=== PATIENT | male | born 1990 | race Two or more races ===

== ENCOUNTER 2017-09-28 00:18 | Emergency (ER) | payer BC ==
[2017-09-28 00:23] VITALS: BP 141/83; PULSE 60; TEMP 98.4; BMI 27.8
[2017-09-28] MEDS ORDERED: ACETAMINOPHEN 1000 MG/100 ML VIAL (NON FORMULARY) IVPB ONE (01:01)
[2017-09-28] MEDS ORDERED: ACETAMINOPHEN INJECTION 100 ML IVPB ONE (01:11)
--- NOTE | 2017-09-28 01:16 | PDOC ---
Attending Attestation - HPI HPI: 09/28/17 01:22 The patient is a 27 year old male, with a significant PMH of crohn's disease, who presents to the emergency department with three days of left lower quadrant pain. The patient states his left lower quadrant pain feels similar to his previous crohns flare ups. The patient states he has had 1-2 hospitalizations per year in the past for his crohns flare ups. The patient also reports one episode of non bloody non bilious emesis earlier today. The patient denies chest pain, shortness of breath, headache and dizziness. Denies fever, chills, diarrhea and constipation. Denies dysuria, frequency, urgency and hematuria. Allergies: NKA - Physicial Exam PE: 09/28/17 01:22 GENERAL: (+) Moderate distress. Well developed, well nourished. Awake and alert. HEENT: Normocephalic, atraumatic. PERRLA, EOMI. No conjunctival pallor. Sclera are non- icteric. Moist mucous membranes. Oropharynx is clear. NECK: Supple. Full ROM. No JVD. Carotid pulses 2+ and symmetric, without bruits. No thyromegaly. No lymphadenopathy. CARDIOVASCULAR: Regular rate and rhythm. No murmurs, rubs, or gallops. Distal pulses are 2+ and symmetric. PULMONARY: No evidence of respiratory distress. Lungs clear to auscultation bilaterally. No wheezing, rales or rhonchi. ABDOMINAL: (+) Left lower quadrant tenderness. Soft. Non-distended. No rebound or guarding. No organomegaly. Normoactive bowel sounds. MUSCULOSKELETAL Normal range of motion at all joints. No bony deformities or tenderness. No CVA tenderness. EXTREMITIES: No cyanosis. No clubbing. No edema. No calf tenderness. SKIN: Warm and dry. Normal capillary refill. No rashes. No jaundice. NEUROLOGICAL: Alert, awake, appropriate. Cranial nerves 2-12 intact. No deficits to light touch and temperature in face, upper extremities and lower extremities. No motor deficits in the in face, upper extremities and lower extremities. Normoreflexic in the upper and lower extremities. Normal speech. Toes are down- going bilaterally. Gait is normal without ataxia. PSYCHIATRIC: Cooperative. Good eye contact. Appropriate mood and affect. <Deonte Jacobs - Last Filed: 09/28/17 01:22> - Resident Resident Name: Mariela Casiano - ED Attending Attestation I have performed the following: I have examined & evaluated the patient, The case was reviewed & discussed with the resident, I agree w/resident's findings & plan, Exceptions are as noted - Medical Decision Making 09/28/17 05:37 Pt treated and released . Given Abx and for pt to follow up with his GI doc. <Douglas Weinberg - Last Filed: 09/28/17 05:38> Attestations - Attestations 09/28/17 01:23 Documentation prepared by Deonte Jacobs, acting as chief medical director for Douglas Weinberg DO. <Deonte Jacobs - Last Filed: 09/28/17 01:22>
[2017-09-28] MEDS ORDERED: SODIUM CHLORIDE 1,000 ML IV STA (01:17)
[2017-09-28] MEDS ORDERED: morphine CARPU-JECT 4 MG/1 ML DISP.SYRIN IVPUSH ONE ×2 (01:17→04:40)
[2017-09-28] MEDS ORDERED: morphine SULFATE 4 MG/ML VIAL ONE ×2 (01:20→04:46)
[2017-09-28 01:24] LABS: BASO % 0.8 % (0-2.0); EOS % 1.4 % (0-4.5); HEMATOCRIT 43.4 % (35.4-49); HEMOGLOBIN 14.6 GM/dL (11.7-16.9); LYMPH % 32.5 % (8-40); MCH 30.8 pg (25.7-33.7); MCHC 33.7 g/dl (32.0-35.9); MEAN CELL VOLUME 91.4 fl (80-96); MEAN PLT VOLUME 9.3 fl (7.5-11.1); MONO % 8.7 % (3.8-10.2); NEUT % 56.6 % (42.8-82.8); PLATELET COUNT 218 K/MM3 (134-434); RBC 4.75 M/mm3 (4.00-5.60); WHITE BLOOD COUNT 9.4 K/mm3 (4.0-10.0)
--- NOTE | 2017-09-28 01:36 | PDOC ---
History of Present Illness - General Chief Complaint: Pain, Acute Stated Complaint: ABDOMINAL PAIN Time Seen by Provider: 09/28/17 00:59 History Source: Patient Exam Limitations: No Limitations - History of Present Illness Initial Comments: HPI: Patient is a 27 year old male with PMH of Crohn's disease presenting to ED with LLQ abdominal pain x 3 days but worsened today. Patient said that this pain feels like his usual flare ups which he usually ends up getting hospitalized for. He usually takes Humira for Crohn's every two weeks but his last dose was "months ago". Patient said he had a non bloody non painful bowel movement this morning. Patient also states that he has been trying to eat and drink fluids and it did not produce pain. He denies fever, chills, chest pain, SOB, dysuria, diarrhea, constipation. He has been taking Tylenol and stool softeners. GE: Dr. Pena PCP: Dr. Garcia PMH: Crohn's Disease PSH: None Meds: Humira Allergies: None Known Social: Marijuana 2-3 joints/day, social alcohol use. denies tobacco use. Past History - Past Medical History Allergies/Adverse Reactions: Allergies Allergy/AdvReac Type Severity Reaction Status Date / Time No Known Allergies Allergy Verified 09/28/17 00:24 Home Medications: Ambulatory Orders Ibuprofen 800 mg PO TID #30 tablet 09/28/17 Oxycodone HCl/Acetaminophen [Percocet 5-325 mg Tablet] 1 - 2 tab PO Q6H #20 tablet MDD 4 09/28/17 levoFLOXacin [Levaquin -] 500 mg PO DAILY #7 tablet 09/28/17 metroNIDAZOLE [Flagyl -] 500 mg PO BID #14 tablet 09/28/17 - Suicide/Smoking/Psychosocial Hx Smoking History: Never smoked Have you smoked in the past 12 months: No Information on smoking cessation initiated: No Hx Alcohol Use: No Drug/Substance Use Hx: No Review of Systems - Review of Systems Comments:: 09/28/17 01:36 ROS: Constitutional: No fevers, chills, fatigue, malaise HEENT: No Rhinorrhea, nasal congestion Cardiovascular: No chest pain, syncope Respiratory: No Cough, SOB, Hemoptysis, Gastrointestinal: LLQ Abdominal pain, Nausea, Vomiting. NO Constipation, Diarrhea, Melena Genitourinary: No Dysuria, Frequency, Urgency, Hesitancy, Hematuria, Flank pain Musculoskeletal: No Myalgia, arthralgia Skin: No rashes, itching, bruising, pallor Neurologic: No Headache, Dizziness, Numbness, Weakness, or Tingling *Physical Exam - Vital Signs Last Vital Signs Temp Pulse Resp BP Pulse Ox 98.4 F 60 18 141/83 96 09/28/17 00:21 09/28/17 00:21 09/28/17 00:21 09/28/17 00:21 09/28/17 00:21 - Physical Exam Comments: 09/28/17 01:37 Physical Exam: General Appearance: Patient in bed in hallway, holding on to LLQ. Distressed. HEENT: EOMI, CHIARA. Neck: No Cervical Lymphadenopathy Respiratory/Chest: Lungs Clear, Normal Breath Sounds. No Crackles, Rales, Rhonchi, Wheezing Cardiovascular: Regular Rhythm, Regular Rate. No JVD, Murmur, Gallops, Rubs Gastrointestinal/Abdominal: LLQ tenderness. Normal Bowel Sounds, Soft. No Guarding, Rebound Musculoskeletal: No CVA Tenderness Integumentary: Normal Color, Dry, Warm Neurologic: election assistant II-XII NML intact, Fully Oriented, Alert, Normal Mood/Affect, Normal Response. ED Treatment Course - LABORATORY CBC & Chemistry Diagram: 09/28/17 01:10 09/28/17 01:10 - RADIOLOGY Radiology Studies Ordered: Category Date Time Status ABDOMEN & PELVIS CT W/O CONTR [CT] Stat CT Scan 09/28/17 01:17 Ordered 09/28/17 07:16 Lung bases clear. stomach and abdominal large and small bowel normal. Pelvic small and large bowel notable for mild focal inflammation of mid-with sigmoid colon and inflamed diverticula, consistent with diverticulitis. Not the typical appearance of Crohn's disease. No bowel obstruction, abscess or free air. Appendix is normal. Impression: uncomplicated sigmoid diverticulitis. - Medications Given in the ED: ED Medications Discontinued Medications Generic Name Dose Route Start Last Admin Trade Name Freq PRN Reason Stop Dose Admin Acetaminophen 1,000 mg 09/28/17 01:01 09/28/17 01:15 Ofirmev Injection - IVPB 09/28/17 01:02 1,000 mg ONCE ONE Administration Morphine Sulfate 4 mg 09/28/17 01:17 09/28/17 01:19 Morphine Injection - IVPUSH 09/28/17 01:18 4 mg ONCE ONE Administration Medical Decision Making - Medical Decision Making 09/28/17 01:43 Patient is a 27 year old male with PMH of Crohn's disease presenting to ED with LLQ abdominal pain x 3 days which worsened today. DDX: Crohn's flare up, Diverticulitis, infectious colitis, appendicitis, testicular torsion, epididymitis/orchitis, nephrolithiasis. CT scan showed: pelvic small and large bowel notable for mild focal inflammation of the mid- with sigmoid colon an inflamed diverticula consisent with diverticultis. Afebrile, vitals wnl, WBC wnl. Called Dr. Pena and he was on board with plan to give pt dose of abx here and d/c with po abx. Pt was given Flagyl and Levaquin and d/c with flagyl, levaquin and ibuprofen for pain. Pt will follow up with Dr. Pena. PT was afebrile, vitals wnl. WBC wnl and pain controlled and tolerating PO. Pt deemed stable for dc. Pt agreed to plan and verbalized understanding of return precautions. *DC/Admit/Observation/Transfer Diagnosis at time of Disposition: Diverticulitis - Discharge Dispostion Disposition: HOME Condition at time of disposition: Stable - Prescriptions Prescriptions: Ibuprofen 800 mg PO TID #30 tablet levoFLOXacin [Levaquin -] 500 mg PO DAILY #7 tablet metroNIDAZOLE [Flagyl -] 500 mg PO BID #14 tablet Oxycodone HCl/Acetaminophen [Percocet 5-325 mg Tablet] 1 - 2 tab PO Q6H #20 tablet MDD 4 - Referrals - Patient Instructions Printed Discharge Instructions: Diverticulitis Additional Instructions: You were seen here today because you were having severe left sided abdominal pain which was similar to Crohn's flare up. We did some blood work and a CT scan of your abdomen to figure out the cause. The CT showed diverticulitis which is an infection of diverticuli (out pouchings ) of the colon. I called Dr. Pena and he agreed with our plan to give you antibiotics and send you home with pain management as well. Please make an appointment with Dr. Pena as soon as you can. Please come back to the ED if you start to experience: worsening abdominal pain , vomiting, blood in the stool, if you are not having any bowel movements, if you develop fever or if a new concerning symptom develops. Thank you. - Post Discharge Activity Forms/Work/School Notes: Back to Work
[2017-09-28 02:01] LABS: ALBUMIN 4.1 g/dl (3.4-5.0); ALK PHOS 57 U/L (45-117); ANION GAP 9 (8-16); BILIRUBIN,TOTAL 0.6 mg/dL (0.2-1.0); BLOOD UREA NITROGEN 13 mg/dL (7-18); CALCIUM 9.3 mg/dL (8.5-10.1); CHLORIDE 104 mmol/L (98-107); CO2 25 mmol/L (21-32); CREATININE 1.3 mg/dL (0.7-1.3); GLUCOSE,RANDOM 94 mg/dL (74-106); POTASSIUM 3.9 mmol/L (3.5-5.1); SGOT/AST 25 U/L (15-37); SGPT/ALT 28 U/L (12-78); SODIUM 138 mmol/L (136-145); TOT PROT 7.5 g/dl (6.4-8.2)
[2017-09-28] MEDS ORDERED: KETOROLAC TROMETHAMINE 30 MG/1 ML VIAL IVPUSH ONE (05:21)
[2017-09-28] MEDS ORDERED: KETOROLAC TROMETHAMINE 30 MG/1 ML VIAL ONE (05:26)
== END 2017-09-28 07:42 | disposition home or self-care (01) ==
LOC: JER 00:18
PROC: 3E03329 Introduction of Other Anti-infective into Peripheral Vein, Percutaneous Approach (ICD-10-PCS; principal; 2017-09-28)
PROC: 3E033NZ Introduction of Analgesics, Hypnotics, Sedatives into Peripheral Vein, Percutaneous Approach (ICD-10-PCS; 2017-09-28)
PROC: 3E033NZ Introduction of Analgesics, Hypnotics, Sedatives into Peripheral Vein, Percutaneous Approach (ICD-10-PCS; 2017-09-28)
PROC: 3E0333Z Introduction of Anti-inflammatory into Peripheral Vein, Percutaneous Approach (ICD-10-PCS; 2017-09-28)
PROC: 3E033NZ Introduction of Analgesics, Hypnotics, Sedatives into Peripheral Vein, Percutaneous Approach (ICD-10-PCS; 2017-09-28)
DX: K57.32 Diverticulitis of large intestine without perforation or abscess without bleeding (principal); K50.90 Crohn's disease, unspecified, without complications
CPT/HCPCS: 36415; 74176-TC; 80053; 83605; 83690; 85025; 99282-25; J0131; J7030

== ENCOUNTER 2021-07-08 04:39 | Day surgery (SDC) | payer BC, OTHER ==
[2021-07-05 18:35] VITALS: BMI 27.9
[2021-07-08] MEDS ORDERED: MIDAZOLAM HCL 2 MG/2 ML SINGLE DOSE VIAL ONE ×2 (11:28)
[2021-07-08] MEDS ORDERED: DEXAMETHASONE SOD PHOSPHATE 10 MG/1 ML VIAL ONE ×2 (11:47→11:49)
[2021-07-08] MEDS ORDERED: BUPIVACAINE HCL/PF 0.25% (2.5MG/ML) 10 ML VIAL ONE (11:47)
[2021-07-08] MEDS ORDERED: BUPIVACAINE HCL/PF 0.5% (5MG/ML) 10 ML VIAL ONE ×2 (11:50)
[2021-07-08] MEDS ORDERED: ceFAZolin SODIUM 1 GM VIAL ONE (12:31)
[2021-07-08] MEDS ORDERED: ceFAZolin SODIUM 1 GM VIAL IVPB ONE (12:31)
[2021-07-08] MEDS ORDERED: DEXAMETHASONE SOD PHOSPHATE 4 MG/1 ML VIAL ONE (12:34)
[2021-07-08] MEDS ORDERED: PROPOFOL 20 ML ONE ×2 (13:21→13:53)
[2021-07-08] MEDS ORDERED: oxyCODONE HCL 5 MG TABLET PO PRN (15:38)
[2021-07-08] MEDS ORDERED: ONDANSETRON 4 MG/2 ML VIAL IVPUSH PRN (15:38)
[2021-07-08] MEDS ORDERED: LACTATED RINGERS SOLUTION 1,000 ML IV SCH (15:45)
[2021-07-08 17:45] VITALS: BP 122/73; PULSE 82; TEMP 97.7
== END 2021-07-08 18:23 | disposition home or self-care (01) ==
LOC: JASU-SURG 04:39
PROVIDERS: ATTEND Podiatrist Foot & Ankle Surgery
PROC: 0LQN0ZZ Repair Right Lower Leg Tendon, Open Approach (ICD-10-PCS; principal; 2021-07-08 11:30)
DX: S86.011A Strain of right Achilles tendon, initial encounter (principal); X58.XXXA Exposure to other specified factors, initial encounter; Y93.9 Activity, unspecified; Y92.9 Unspecified place or not applicable; Y99.9 Unspecified external cause status
CPT/HCPCS: 94760; J1100